=== PATIENT | female | born 1955 ===

== ENCOUNTER 2017-01-09 05:37 | Day surgery (SDC) | payer OTHER ==
[~2017-01-09] VITALS: Ht 162.6 cm; Wt 62.8 kg
[2017-01-09] VITALS (13 sets, daily range): BP systolic 118–128; BP diastolic 53–64; PULSE 62–82; RESP 10–17; O2SAT 97–100
[~2017-01-09 05:37] MED LIST: ASPI-973 PO; ATOR20TA PO; BIOT10003 PO; CARB1DRO18 OP; CHOL100045 PO; CINN500C14 PO; CRAN400T4 PO; GABA-502 PO; INSU100I13 SUBQ; LISI10TA PO; LORazepam 1 mg Tablet PO PRN; LOV40 SUBQ; Lactated Ringer's 1,000 ML IV SCH; Lidocaine-Prilo 2.5-2.5% 30 Gm Cream TOPICAL ONE; MAGN250T29 PO; METF500T4 PO; MILK500C PO; OMEG500C3 PO; OXYC5CAP4 PO; RNT300T PO; WARF3TAB7 PO; WARF4TAB6 PO
[2017-01-09] MEDS ORDERED: fentaNYL-PF 50 mCg/mL 2 mL Inj ONE (05:38)
[2017-01-09] MEDS ORDERED: Propofol 10,000 mCg/mL 20 mL Inj ONE (05:38)
[2017-01-09] MEDS ORDERED: CeFAZolin Inj 2 GM in IV Premix 1 EACH IV ONE (06:00)
[2017-01-09] MEDS ORDERED: Lactated Ringer's 1,000 ML IV ONE (06:05)
[2017-01-09 06:40] LABS: INR 0.94 ratio
[2017-01-09] MEDS ORDERED: EPHEDrine Sulfate 50 mg/mL Inj IVPUSH PRN (07:40)
[2017-01-09] MEDS ORDERED: Atropine 0.4 mg/mL Inj IVPUSH PRN (07:40)
[2017-01-09] MEDS ORDERED: Lactated Ringer's 1,000 ML IV SCH (07:40)
[2017-01-09] MEDS ORDERED: Ondansetron 2 mg/mL 2 mL Inj IVPUSH PRN (07:40)
[2017-01-09] MEDS ORDERED: Labetalol 5 mg/mL 4 mL Inj IV PRN (07:40)
[2017-01-09] MEDS ORDERED: MetoCLOpramide 5 mg/mL 2 mL Inj IVPUSH PRN (07:40)
[2017-01-09] MEDS ORDERED: Dexamethasone 4 mg/mL Inj IVPUSH PRN (07:40)
[2017-01-09] MEDS ORDERED: Phenylephrine 10,000 mCg/mL Inj IVPUSH PRN (07:40)
[2017-01-09] MEDS ORDERED: Lactated Ringer's 500 ML IV PRN (07:40)
[2017-01-09] MEDS ORDERED: fentaNYL-PF 50 mCg/mL 2 mL Inj IVPUSH PRN (07:40)
[2017-01-09] MEDS ORDERED: hydrALAZINE 20 mg/mL Inj IVPUSH PRN (07:40)
--- NOTE | 2017-01-09 07:40 | PCM.HPANE ---
Patient Data Date of Service: Jan 09, 2017 (Exam completed 7:00) Surgeon Admitting Provider: Attending Provider:Majo Cervantes MD Primary Care Physician:Sarahy Delvalle Other Provider:Dewey Orozco Anesthesia Reason for Visit Anac Cancer, Right Kidney Stone Ht/WT & BMI Height (Feet): 5 Height (Inches): 4.00 Weight (Kilograms): 62.8 Body Mass Index 23.00 Allergies Coded Allergies: lovastatin (Verified Allergy, Unknown, 09/09/16) morphine (Verified Allergy, Unknown, 09/09/16) acetaminophen (Verified Adverse Reaction, Severe, Severe Nausea, 09/09/16) hydrocodone (Verified Adverse Reaction, Severe, Severe Nausea, 09/09/16) Past Anesthesia History Anesthesia History: Positive for:: Anesthesia Reactions (breathing issues after Aug 2016 surgery), Denies:: Abnormal Airway, Difficult Intubation, Fam Anesthesia Reaction Diabetes History Hx Diabetes?: Yes (typeII insulin ) Type of Diabetes: Type II Glycemic Control: Insulin & Oral Medication Current Bedside Blood Glucose: 99 MRSA MRSA: No Medications Blood Thinner: Aspirin, Coumadin, Lovenox Hypertension Medication: Yes Home Meds Incl Beta Mario: No Active Scripts oxyCODONE 5 Mg Capsule5 Mg PO Q4H PRN For Pain #15 CAPSULE Ref 0 Prov:DickdreBebe cortez DO 09/11/16 Reported Medications Carboxymethyl/Gly/Poly80/Pf (Refresh Optive Advanced Drops)1 Each Droperette1 Each OP QID 09/09/16 Magnesium Oxide (Magnesium)250 Mg Qbysfq905 Mg PO HS 09/09/16 Insulin Glargine (Lantus U100 Solostar Insulin Pen)100 Unit/1 Ml Insuln.pen10 Unit SUBQ HS #1 PENINJ Ref 0 09/09/16 Insulin Glargine (Lantus U100 Solostar Insulin Pen)100 Unit/1 Ml Insuln.pen20 Unit SUBQ QAM #1 PENINJ Ref 0 09/09/16 Enoxaparin (Lovenox)40 Mg/0.4 Ml Eltefhy11 Mg SUBQ DAILY Ref 0 09/09/16 Gabapentin 300 Mg Lbvgnru416 Mg PO HS Ref 0 09/09/16 Cholecalciferol (Vitamin D3) (Vitamin D)1,000 Unit Capsule2,000 Unit PO DAILY # 1 BOTTLE Ref 0 09/09/16 Ranitidine (Zantac)300 Mg Dhzqse487 Mg PO DAILY Ref 0 09/06/16 Warfarin Sodium 4 Mg Tablet4 Mg PO DAILY 30 Days Ref 0 EVERY DAY EXCEPT Friday09/06/16 Warfarin Sodium 3 Mg Tablet3 Mg PO WEEKLY 30 Days Ref 0 Friday09/06/16 Lisinopril 10 Mg Bsabzu25 Mg PO DAILY 30 Days Ref 0 09/06/16 Metformin 500 Mg Tablet1,000 Mg PO BIDWM Ref 0 09/06/16 Platina-3 Fatty Acids (Fish Oil)500 Mg Bdjmohk681 Mg PO DAILY 09/06/16 Cranberry Fruit (Cranberry)400 Mg Evrplq094 Mg PO BID 09/06/16 Biotin 10,000 Mcg Nkwudnu51,000 Mcg PO DAILY 09/06/16 Aspirin 81 Mg Pxanrt76 Mg PO DAILY Ref 0 09/06/16 Milk Thistle 500 Mg Capsule1,000 Mg PO DAILY 04/25/16 Cinnamon Bark (Cinnamon)500 Mg Qhogpaa375 Mg PO DAILY 04/25/16 Atorvastatin (Lipitor)20 Mg Dqkijb80 Mg PO DAILY Ref 0 04/09/16 History History of ENT Problems?: No HEENT History: Positive for:: Cataracts (bilateral surgery) Denies:: Abnormal Airway Difficult Intubation Dysphagia Glaucoma Hearing Problem Sinus Problem TMJ Denture Type: Partial- Upper Hx of Heart Problems?: Yes Cardiovascular History: Positive for:: Hypertension Thrombophlebitis (hx DVT ) Denies:: Congestive Heart Failure Pacemaker Hx of Respiratory Problem?: Yes Respiratory History: Positive for:: Pneumonia (post surgery 08/2016) Denies:: Asthma COPD Emphysema Oxygen Administration Tuberculosis Use of C-PAP Machine Use of Inhalers / NEBS Hx Neurologic Problems?: No Neurological History: Denies:: Alzheimer's Disease CVA Dementia Dizziness Headaches Parkinson's Disease Seizures Hx of GI Problems?: Yes Gastrointestinal History: Positive for:: Gastroesphageal Reflux Heartburn Rectal Bleeding (anal cancer ) Denies:: Cirrhosis Gall Bladder Disease Hx of Problems?: Yes Genitourinary History: Positive for:: Kidney Stones (hx of right stone current problem) Denies:: Urinary Tract Infection Female Hx: Denies:: Currently Problems with Breasts? Skin History: Denies:: History Skin Disorders? Pressure Ulcers Hx Musculoskeletal Problems?: Yes Musculoskeletal History: Positive for:: Back Injury Degenerative Joint Fibromyalgia Osteoarthritis Denies:: Joint Replacement Musculoskeletal Trauma Hx of Psycho/Social Problems?: No Hx Surgeries?: Yes (APPY,EYE) Hx Any Other Health Problems?: Yes Other History: Positive for:: Cancer (rectal ) Hospitalization Denies:: Thyroid Disease History Blood Transfusions: Positive for:: Accept Blood Products? Blood Transfusions Denies:: Blood Transfuse Reaction Hx Diabetes: Yes (typeII insulin )Bedside Blood Glucose: 99 Hx Alcohol Use: NoHx Substance Use: No Smoking Status: Former Smoker Have You Smoked inLast 12 mo: No Stop/Bang S-Snoring: Do You Snore Loudly: No T-Tired: feel tired, fatigued: Yes O-Obsered: Observed not breath: No P-Blood Pressure: treated: Yes B- Body Mass Index > 35 kg/m2: No A- Age over 50: Yes N- Neck Large Circumference: No G- Gender Male: No DAMIEN Total Score: 3 DAMIEN Risk Assessment: Low Risk, <3 Yes Risk Assessment Category Category 1A: Patient has history of documented sleep apnea, and HAS NOT received any narcotic, sedative or anesthesia administration during this stay. Category 1B: Patient has history of documented sleep apnea, and HAS received any narcotic , sedative or anesthesia administration during this stay Category 2: Patient has SUSPECTED Obstructive Sleep Apnea, and HAS received any narcotic , sedative or anesthesia administration during this stay. Category 3: Patient has SUSPECTED Obstructive Sleep Apnea and HAS NOT received narcotic, sedative or anesthesia administration during this stay. Category 4: Outpatient in Procedural Areas with known sleep apnea or who screen positive for High Risk via the STOP/BANG questionnaire. Exam Exam Vital Signs Vital Signs Date Time Temp Pulse Resp B/P Pulse Ox O2 Delivery O2 Flow Rate FiO2 01/09/17 06:28 36.4 82 17 118/60 97 Room Air General Appearance: Alert, Oriented X3, Cooperative, No Acute Distress HEENT/AIRWAY: MP 2, Neck Movement Lungs: Clear to Auscultation, Normal Air Movement Heart: Exam Unremarkable, Regular Rate/Rhythm, No Murmurs/Rubs/Gallops Meds/Labs/Diagnostics Admission Meds Current Medications Lactated Ringer's (Lr) 1,000 ml @ ud STK-MED ONCE IV Last administered on t 06:05; Start 01/09/17 at 06:05; Stop 01/09/17 at 06:27; Status DC Bedside Blood Glucose: 99 Labs Test 01/09/17 06:15 Prothrombin Time 10.0sec (8.1-12.5) Prothromb Time International Ratio 0.94ratio Plan Impression Patient chart reviewed, patient interviewed and anesthestic plan with risks, benefits, and alternatives discussed, and informed consent obtained. NPO Status: 01/08@1400, water @2200 ASA Physical Status: ASA3 Severe Disease Anesthetic Plan: MAC, SAB Bene/Risks/Altern/Consents: Yes HP Complete Prior to Induction: Yes Peter Keene MD Jan 09, 2017 07:40
[2017-01-09] MEDS ORDERED: Bupivacaine-MPF 0.5% 30 mL Inj INFILTRATE ONE (08:18)
[2017-01-09] MEDS ORDERED: OXYC-474 PO (08:43)
--- NOTE | 2017-01-09 09:03 | DRSVH ---
PROCEDURE: X-RAY KUB ([id number]) INDICATIONS: RIGHT KIDNEY STONE TECHNIQUE: One view of the abdomen acquired. COMPARISON: [facility], CR, XR KUB, 12/13/2016, 8:32. FINDINGS: Surgical changes and devices: Lower quadrant surgical clips. Bowel: Bowel gas pattern is normal. Soft tissues: 2 calcification is seen projected over the mid pole of the right kidney largest measuri ng 1.6 cm and a smaller 0.7 cm. 2 stones also seen projecting over the midpole of the left kidney la rgest measuring 1.0 cm and the smaller 0.4 cm. Bones: No suspicious bony lesions. IMPRESSION: Bilateral renal calcifications similar to prior exam. Dictated by: Hever Dave RR Interpreted: Lukas Silva MD on 01/09/2017 at 9:01 Transcribed by: SUNDAY on 01/09/2017 at 9:02 Approved by: Lukas Silva M.D. on 01/10/2017 at 13:29
--- NOTE | 2017-01-09 09:56 | OP ---
[address] [address] OPERATIVE REPORT PATIENT: MASSIMO GUEVARA : 1955 MR#: [id number] ADMIT: 01/09/2017 JOB ID: [id number] DATE OF SURGERY: 01/09/2017 PREOPERATIVE DIAGNOSIS(ES): Right proximal ureteral stone. POSTOPERATIVE DIAGNOSIS(ES): Right proximal ureteral stone. PROCEDURE PERFORMED: 1. Cystoscopy and right ureteral stent placement. 2. Right extracorporeal shockwave lithotripsy. SURGEON: Majo Cervantes MD SLABBING MACHINE OPERATOR: None. FINDINGS: Right proximal ureteral stone that hazed quickly within the first 200 shocks with excellent fragmentation. A total of 2000 shocks were delivered to this stone. 2000 shocks was the maximum capability for this machine at a power of 8. ANESTHESIA: Spinal. ESTIMATED BLOOD LOSS: None. DRAIN: A 6 x 24 right double-J ureteral stent. SPECIMENS: None. COMPLICATIONS: None. CONDITION: Stable. INDICATION FOR PROCEDURE: The patient is a 61-year-old woman who has a history of undergoing attempted ureteroscopy though subsequently postoperatively sustained a bronchospasm. She now presents for shockwave lithotripsy under spinal. DESCRIPTION OF PROCEDURE: After informed consent was obtained, the patient was taken to the operating room. A time-out was performed identifying correct patient, surgical site, and procedure. Spinal anesthesia was induced. She had undergone an anal biopsy with Dr. Varela. Please, see his separately dictated note. Her genitals were prepped and draped in the usual sterile fashion. A 22-[place] rigid cystoscope was applied to the patient's urethra and advanced to the bladder. The bladder was drained. The right ureteral orifice was seen in orthotopic position. It was cannulated with a 5-[place] open-ended Pollack catheter. A Sensor tip wire was then navigated through it to the renal pelvis. The Pollack was subsequently removed and a 6 x 24 double-J ureteral stent was loaded over it and advanced to the renal pelvis as seen under fluoroscopy. The wire was then removed leaving a nice coil in the patient's bladder as seen under direct vision. The bladder was drained. The patient subsequently underwent shockwave lithotripsy as aforementioned in the findings above. She appeared to tolerate it well. She was then taken to the PACU in good and stable condition. [facility]
--- NOTE | 2017-01-09 10:17 | PCM.ANEP1 ---
Post Anesthesia Phase 1 PACU Phase 1 Assessment Date of Service: Jan 09, 2017 (Exam completed 7:00) Vital Signs Vital Signs Date Time Temp Pulse Resp B/P Pulse Ox O2 Delivery O2 Flow Rate FiO2 01/09/17 10:07 13 100 01/09/17 10:00 36.4 62 14 126/60 98 Room Air 01/09/17 09:50 62 14 128/59 97 Room Air 01/09/17 09:40 66 12 124/55 97 Room Air 01/09/17 09:35 68 12 119/53 97 Room Air 01/09/17 09:30 67 12 127/61 97 Room Air 01/09/17 09:29 15 100 01/09/17 09:25 74 15 119/57 100 Room Air 01/09/17 09:22 36.4 74 10 122/53 100 Simple Mask 8 01/09/17 06:28 36.4 82 17 118/60 97 Room Air Anesthetic Administered: SAB Level of Alertness: Awake, talking GARCIA's with Equal Strength: Yes Pain: No Nausea or Vomiting: No Oxygen Delivery: Room Air Lungs: Clear to Auscultation, Normal Air Movement Dermatome Level: L1,2 (Groin) Peter Keene MD Jan 09, 2017 10:17
--- NOTE | 2017-01-09 10:32 | PCM.ANEP2 ---
Post Anesthesia Evaluation ASA/CMS Post Anesthesia VS in Patient's Normal Range?: Yes Resp Stable; Airway Patent?: Yes CV Function & Hydration Stable: Yes Mental Status Recovered?: Yes Pain control Satisfactory?: Yes N/V Control Satisfactory?: Yes Peter Keene MD Jan 09, 2017 10:32
--- NOTE | 2017-01-10 16:29 | OP ---
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 POSTOPERATIVE DIAGNOSIS(ES): Scarring without obvious evidence of recurrent or residual squamous cell carcinoma. PROCEDURE PERFORMED: Anorectal examination under anesthesia with biopsies. SURGEON: Ciara Varela MD COMMUNICATIONS DEPARTMENT HEAD: None. COMPLICATIONS: None. INDICATIONS: The patient is a 61-year-old lady who developed a mild burning sensation near her anus in early 2015. Later in March 2016 she developed bleeding per rectum and was evaluated by Dr. Gabriela Almeida at [facility] who found a 6 cm nearly circumferential ulcerative fixed firm mass in the anal canal. Biopsies of this mass showed well-differentiated squamous cell carcinoma. She has been treated with chemoradiation finishing in May 2016. Dr. Moreno referred her to me for surveillance anoscopy with biopsies. After discussing the risks, benefits, and alternatives, she is here today after holding her warfarin, at the same time as treatment for her nephrolithiasis with Dr. Cervantes. PROCEDURE DETAILS: She underwent smooth induction of spinal anesthesia, and was placed in the lithotomy position. The perineum was prepped and draped in the usual sterile fashion. Surgical time-out was undertaken using safety checklist and all were in agreement. I first began by performing digital rectal exam and found scarring of the anal canal that I had appreciated previously. Because of the scarring I could not actually place the anal speculum to spread open the anal canal. I used a [place] retractor to expose the anal canal and noted that there was scarring most prominent at 9 o'clock and at 12 o'clock locations in the lithotomy position; that is, on the right side and anteriorly. Then, I took biopsies of the scar 2 cm deep to the anal verge in both these locations and I also took additional random biopsies at 6 o'clock and 3 o'clock within the anal canal. After ensuring adequate hemostasis, I infiltrated the site with bupivacaine and terminated the procedure. Please refer to Dr. Cervantes's dictation for her part of the procedure.
--- NOTE | 2017-01-13 14:45 | PATH ---
SURGICAL PATHOLOGY Attending Physician:Ciara Varela MD CASE STATUS: Signed Out PATIENT NAME: MASSIMO GUEVARA PID: [id number] : 1955 DATE COLLECTED:01/09/2017 19:59 SPECIMEN: 1: Anus, Biopsy 2: Anus, Biopsy 3: Anus, Biopsy 4: Anus, Biopsy CLINICAL HISTORY: ANAL CANCER 1). 9 O'CLOCK 2CM DEEP TO ANAL VERGE SCAR 2). RANDOM BIOPSY 6 O'CLOCK 1CM DEEP TO ANAL VERGE 3). RANDOM 1CM FROM ANAL VERGE 3 O'CLOCK 4). 12 O'CLOCK 2CM DEEP TO ANAL VERGE SCAR FINAL DIAGNOSIS: 1.BIOPSY AT 9 O' CLOCK, 2 CM DEEP TO THE ANAL VERGE, SCAR: SQUAMOUS MUCOSA AND UNDERLYING FIBROSIS WITH NO EVIDENCE FOR MALIGNANCY. 2.RANDOM BIOPSY, 6 O' CLOCK, 1 CM DEEP TO THE ANAL VERGE: FRAGMENTS OF SQUAMOUS EPITHELIUM NEGATIVE FOR SIGNIFICANT ATYPIA, WELL SMALL FRAGMENTS OF FIBROUS TISSUE NEGATIVE FOR MALIGNANCY. 3.RANDOM BIOPSY, 1 CM FROM THE ANAL VERGE AT 3 O' CLOCK: FRAGMENTS OF BENIGN SQUAMOUS EPITHELIUM, NEGATIVE FOR SIGNIFICANT ATYPIA. 4.BIOPSY, 12 O' CLOCK, 2 CM DEEP TO THE ANAL VERGE SCAR: FRAGMENTS OF SQUAMOUS EPITHELIUM WITH REACTIVE CHANGES AND UNDERLYING FIBROUS TISSUE, NEGATIVE FOR MALIGNANCY. ICD10 CODE Z85.048 GROSS DESCRIPTION: The specimen is received in four formalin filled containers labeled with the patient's name. 1). The specimen is sublabeled "9:00, 2 CM deep to anal verge scar" and consists of 3 portions of tissue which aggregate to 0.3 x 0.3 x 0.2 CM. The specimen is entirely submitted in cassette 1A. 2). The specimen is sublabeled "random 6:00, one CM deep to anal verge" and consists of a 0.3 x 0.1 x 0.1 CM White donovan-white portion of tissue. The specimen is entirely submitted in cassette 2A. 3). The specimen is sublabeled "random one CM from anal verge-3:00" and consists of a 0.2 x 0.2 x 0.2 CM portion of tissue which is entirely submitted in cassette 3A. 4). The specimen is sublabeled "12:00, 2 CM deep to anal verge scar" and consists of 2 portions of tissue which aggregate to 0.3 x 0.2 x 0.2 CM. The specimen is entirely submitted in cassette 4A. 01/09/2017 [facility] MICRO DESCRIPTION: Sections from part 1 are of a biopsy stated to be 2 cm deep to the anal verge, 9 o' clock. The fragments contain squamous epithelium and underlying fibrous tissue consistent with a scar. Within the fibrous tissue there are plump cells, and in order to rule out the possibility of residual carcinoma in this area immunohistochemistry is performed. These cells are negative for LATHA and positive for CD31, indicating that they are reactive endothelial cells with no evidence for malignancy. Sections from part 2 are random biopsy at 6 o' clock, 1 cm deep to the anal verge. This consists of squamous epithelium. Small fragments of fibrous tissue are also present. There is no evidence for malignancy. Sections from part 3 are of random biopsies 1 cm from the anal verge at 3 o' clock. These are fragments of squamous epithelium only. No malignancy is noted, nor is there significant atypia. Part 4 are biopsies from 12 o' clock, 2 cm deep to the anal verge. The tissue is similar to that described in part 1. There is squamous epithelium showing reactive changes, and there is underlying fibrous tissue within which there is chronic inflammation, fibrosis, and a few scattered plump cells. Immunohistochemistry reveals these plump cells to be negative for LATHA and positive for CD31, indicating that they are reactive endothelial cells with no evidence for malignancy. This test was developed and its performance characteristics determined by [facility]. It has not been cleared or approved by the [place]. S. Food and Drug Administration. The FDA has determined that such clearance or approval is not necessary. This test is used for clinical purposes. It should not be regarded as investigational or for research. ICD-9 CODES: CPT CODES: 1: 29101, 83936, 74235 2: 22894 3: 06873 4: 73694, 45165, 47356 Electronically Signed Out Nahid So MD [facility] [address], [place] [address] Technical component performed at [facility], [address], [place], [address]
[2017-03-18] MEDS ORDERED: GABA-502 PO (09:42)
[2017-03-18] MEDS ORDERED: CHOL200025 PO (09:42)
[2017-03-18] MEDS ORDERED: OXYC5TAB72 PO (09:42)
[2017-03-18] MEDS ORDERED: ASPI-973 PO (09:42)
[2017-03-18] MEDS ORDERED: BIOT10003 PO (09:42)
[2017-03-18] MEDS ORDERED: OMEG500C PO (09:42)
[2017-03-18] MEDS ORDERED: MILK500C PO (09:42)
[2017-03-18] MEDS ORDERED: MAGN250T37 PO (09:42)
[2017-03-18] MEDS ORDERED: VITA200T5 PO (09:42)
[2017-03-18] MEDS ORDERED: CRAN400C PO (09:42)
[2017-03-18] MEDS ORDERED: WARF3TAB7 PO (09:42)
[2017-03-18] MEDS ORDERED: LISI10TA PO (09:42)
[2017-03-18] MEDS ORDERED: WARF4TAB6 PO (09:42)
[2017-03-18] MEDS ORDERED: CARB10DR2 OP (09:42)
[2017-03-18] MEDS ORDERED: RNT300T PO (09:42)
[2017-03-18] MEDS ORDERED: METF1000 PO (09:42)
[2017-03-18] MEDS ORDERED: [UNRECOGNIZED DRUG - OTHER] ×2 (09:42)
[2017-03-18] MEDS ORDERED: ATOR20TA PO (09:42)
[2017-03-18] MEDS ORDERED: CINN500C14 PO (09:42)
== END 2017-01-09 23:59 | disposition home or self-care (01) ==
LOC: SAS 05:37
PROVIDERS: ATTEND Urology
DX: N20.1 Calculus of ureter (principal); Z85.048 Personal history of other malignant neoplasm of rectum, rectosigmoid junction, and anus; I10 Essential (primary) hypertension; E11.9 Type 2 diabetes mellitus without complications; E78.5 Hyperlipidemia, unspecified; M06.9 Rheumatoid arthritis, unspecified; K21.9 Gastro-esophageal reflux disease without esophagitis; M79.7 Fibromyalgia; Z86.718 Personal history of other venous thrombosis and embolism; Z79.4 Long term (current) use of insulin; Z79.82 Long term (current) use of aspirin; Z87.891 Personal history of nicotine dependence; Z79.84 Long term (current) use of oral hypoglycemic drugs; Z79.01 Long term (current) use of anticoagulants
CPT/HCPCS: 36415; 45990; 50590; 52332; 74000; 85610; 85730; C2617; J0690; J2250; J3010; J7120

== ENCOUNTER 2017-03-20 08:44 | Day surgery (SDC) | payer OTHER ==
--- NOTE | 2017-03-18 11:35 | PCM.ANEPRE ---
Anesthesia Pre-Op Review Reason for Review: prior anes complication Anesthesia Recommendations: Proceed with Procedure Additional Comments Patient had to be reintubated after a cystoscopy with multiple day stay in ICU on ventilator. Following ESWL done under spinal. Patient reports stopping Coumadin 03/13. Proceed with final decision by anesthesiologist DOS. Chart Reviewed by: Kaylee Cuenca DO Mar 18, 2017 11:35
[2017-03-20] VITALS (8 sets, daily range): BP systolic 99–122; BP diastolic 52–63; PULSE 66–88; RESP 10–17; O2SAT 97–100
[~2017-03-20] VITALS: Ht 162.6 cm; Wt 63.4 kg
[~2017-03-20 08:44] MED LIST changes: +CARB10DR2 OP; -CARB1DRO18 OP; -CHOL100045 PO; +CHOL200025 PO; +CRAN400C PO; -CRAN400T4 PO; +CeFAZolin Inj 2 GM in IV Premix 1 EACH IV ONE; -INSU100I13 SUBQ; -LORazepam 1 mg Tablet PO PRN; -LOV40 SUBQ; -Lactated Ringer's 1,000 ML IV SCH; -Lidocaine-Prilo 2.5-2.5% 30 Gm Cream TOPICAL ONE; -MAGN250T29 PO; +MAGN250T37 PO; +METF1000 PO; -METF500T4 PO; +OMEG500C PO; -OMEG500C3 PO; -OXYC5CAP4 PO; +OXYC5TAB72 PO; +VITA200T5 PO; +[UNRECOGNIZED DRUG - OTHER]
[2017-03-20] MEDS ORDERED: fentaNYL-PF 50 mCg/mL 2 mL Inj ONE (08:45)
[2017-03-20] MEDS ORDERED: Dexamethasone 4 mg/mL Inj ONE (08:45)
[2017-03-20] MEDS ORDERED: Phenylephrine/NS 100 mCg/mL 10 mL Syringe IVPUSH ONE (08:45)
[2017-03-20] MEDS ORDERED: Propofol 10,000 mCg/mL 20 mL Inj ONE (08:45)
[2017-03-20] MEDS ORDERED: Ondansetron 2 mg/mL 2 mL Inj ONE (08:45)
[2017-03-20] MEDS: Lactated Ringer's 1,000 ML IV SCH ×2 (09:31→10:18)
--- NOTE | 2017-03-20 10:14 | PCM.HPANE ---
Patient Data Surgeon Admitting Provider: Attending Provider:Majo Cervantes MD Primary Care Physician:Sarahy Delvalle Other Provider:Dewey Orozco Anesthesia Reason for Visit Left Kidney Stone Ht/WT & BMI Height (Feet): 5 Height (Inches): 4 Weight (Kilograms): 63.95 Body Mass Index 24.00 Allergies Coded Allergies: lovastatin (Verified Allergy, Unknown, 09/09/16) morphine (Verified Allergy, Unknown, 09/09/16) acetaminophen (Verified Adverse Reaction, Severe, Severe Nausea, 09/09/16) hydrocodone (Verified Adverse Reaction, Severe, Severe Nausea, 09/09/16) Past Anesthesia History Anesthesia History: Positive for:: Anesthesia Reactions (breathing issues after Aug 2016 surgery), Denies:: Abnormal Airway, Difficult Intubation, Fam Anesthesia Reaction Diabetes History Hx Diabetes?: Yes (last found Hgb A1C- 6.3 07/29/16) Type of Diabetes: Type II Glycemic Control: Insulin & Oral Medication MRSA MRSA: No Medications Blood Thinner: Aspirin, Coumadin, Lovenox Hypertension Medication: Yes Home Meds Incl Beta Mario: No Reported Medications Cholecalciferol (Vitamin D3) (Vitamin D3)2,000 Unit Tablet2,000 Unit PO DAILY 03/18/17 Ranitidine (Zantac)300 Mg Qylpgs701 Mg PO DAILY Ref 0 03/18/17 Warfarin Sodium 4 Mg Tablet4 Mg PO 5xweek 30 Days Ref 0 03/18/17 Warfarin Sodium 3 Mg Tablet3 Mg PO wed/fri 30 Days Ref 0 03/18/17 Carboxymethylcellulos/Glycerin (Refresh Optive Gel Eye Drops)1 %-0.9 % Drops.gel10 Ml OP DAILY 03/18/17 Milk Thistle 500 Mg Capsule1,000 Mg PO DAILY 03/18/17 Metformin (Glucophage)1,000 Mg Tablet1,000 Mg PO BID Ref 0 03/18/17 Magnesium Oxide 250 Mg Culbko823 Mg PO DAILY 03/18/17 Lisinopril 10 Mg Cwlyyw90 Mg PO DAILY 30 Days Ref 0 03/18/17 Gabapentin 300 Mg Ppwzlfq644 Mg PO DAILY Ref 0 03/18/17 [place]-3 Fatty Acids (Fish Oil)500 Mg Capsule.dr500 Mg PO DAILY 03/18/17 Cranberry 400 Mg Lhzttgw441 Mg PO BID 03/18/17 Cinnamon Bark (Cinnamon)500 Mg Eodhaus802 Mg PO DAILY 03/18/17 Biotin 10,000 Mcg Pkhiudh89,000 Mcg PO DAILY 03/18/17 [busaglar] No Conflict Check20 Units QPM 03/18/17 [busaglar] No Conflict Check20 Units QAM 03/18/17 Atorvastatin (Lipitor)20 Mg Drwsre30 Mg PO DAILY Ref 0 03/18/17 Aspirin 81 Mg Duzlpu61 Mg PO DAILY Ref 0 03/18/17 Discontinued Reported Medications oxyCODONE 5 Mg Tablet5 Mg PO Q4H PRN For Pain Ref 0 03/18/17 Vitamin E Acid Succinate (Vitamin E)200 Unit Vjnhrj678 Unit PO DAILY 03/18/17 Carboxymethyl/Gly/Poly80/Pf (Refresh Optive Advanced Drops)1 Each Droperette1 Each OP QID 09/09/16 Magnesium Oxide (Magnesium)250 Mg Wllgfs394 Mg PO HS 09/09/16 Insulin Glargine (Lantus U100 Solostar Insulin Pen)100 Unit/1 Ml Insuln.pen10 Unit SUBQ HS #1 PENINJ Ref 0 09/09/16 Insulin Glargine (Lantus U100 Solostar Insulin Pen)100 Unit/1 Ml Insuln.pen20 Unit SUBQ QAM #1 PENINJ Ref 0 09/09/16 Enoxaparin (Lovenox)40 Mg/0.4 Ml Omlruok88 Mg SUBQ DAILY Ref 0 09/09/16 Gabapentin 300 Mg Wwvylzl520 Mg PO HS Ref 0 09/09/16 Cholecalciferol (Vitamin D3) (Vitamin D)1,000 Unit Capsule2,000 Unit PO DAILY # 1 BOTTLE Ref 0 09/09/16 Ranitidine (Zantac)300 Mg Fuzcnc225 Mg PO DAILY Ref 0 09/06/16 Warfarin Sodium 4 Mg Tablet4 Mg PO DAILY 30 Days Ref 0 EVERY DAY EXCEPT Friday09/06/16 Warfarin Sodium 3 Mg Tablet3 Mg PO WEEKLY 30 Days Ref 0 Friday09/06/16 Lisinopril 10 Mg Qdicgy22 Mg PO DAILY 30 Days Ref 0 09/06/16 Metformin 500 Mg Tablet1,000 Mg PO BIDWM Ref 0 09/06/16 [place]-3 Fatty Acids (Fish Oil)500 Mg Duxdoil737 Mg PO DAILY 09/06/16 Cranberry Fruit (Cranberry)400 Mg Gqbbcs806 Mg PO BID 09/06/16 Biotin 10,000 Mcg Wmhfubc60,000 Mcg PO DAILY 09/06/16 Aspirin 81 Mg Etbacd87 Mg PO DAILY Ref 0 09/06/16 Milk Thistle 500 Mg Capsule1,000 Mg PO DAILY 04/25/16 Cinnamon Bark (Cinnamon)500 Mg Lrelskr918 Mg PO DAILY 04/25/16 Atorvastatin (Lipitor)20 Mg Ykhpyj52 Mg PO DAILY Ref 0 04/09/16 Discontinued Scripts Oxycodone (Roxicodone)5 Mg Tablet5 Mg PO Q4H PRN For Pain #30 TABLET Ref 0 Prov:Ciara Varela MD 01/09/17 oxyCODONE 5 Mg Capsule5 Mg PO Q4H PRN For Pain #15 CAPSULE Ref 0 Prov:Bebe Rueda DO 09/11/16 History History of ENT Problems?: No HEENT History: Positive for:: Cataracts (bilateral surgery) Denies:: Abnormal Airway Difficult Intubation Dysphagia Hearing Problem Sinus Problem TMJ Denture Type: Partial- Upper Teeth Condition: Within Normal Limits Hx of Heart Problems?: Yes Cardiovascular History: Positive for:: Hypertension Thrombophlebitis (hx DVT - 1996, 1997 ) Denies:: Congestive Heart Failure Pacemaker Hx of Respiratory Problem?: Yes Respiratory History: Positive for:: Pneumonia (post surgery 08/2016) Denies:: Asthma COPD Emphysema Oxygen Administration Tuberculosis Use of C-PAP Machine Use of Inhalers / NEBS Hx Neurologic Problems?: No Neurological History: Denies:: Alzheimer's Disease CVA Dementia Dizziness Headaches Multiple Sclerosis Parkinson's Disease Seizures Hx of GI Problems?: Yes Gastrointestinal History: Positive for:: Gastroesphageal Reflux Heartburn Rectal Bleeding (anal cancer hx) Denies:: Cirrhosis Gall Bladder Disease Hepatitis Hiatal Hernia Liver Disease Hx of Problems?: Yes Genitourinary History: Positive for:: Kidney Stones (hx of left stone current problem) Denies:: Urinary Tract Infection Female Hx: Denies:: Currently Problems with Breasts? Skin History: Denies:: History Skin Disorders? Pressure Ulcers Hx Musculoskeletal Problems?: Yes Musculoskeletal History: Positive for:: Back Injury Degenerative Joint Fibromyalgia Osteoarthritis Denies:: Joint Replacement Musculoskeletal Trauma Myasthenia Gravis Systemic Lupus Hx of Psycho/Social Problems?: No Psycho Social History: Denies:: Anxiety Hx Depression Hx Surgeries?: Yes (APPY,EYE, kidney stones ) Hx Any Other Health Problems?: Yes Other History: Positive for:: Cancer (rectal ) Hospitalization Denies:: Thyroid Disease History Blood Transfusions: Positive for:: Accept Blood Products? Blood Transfusions Denies:: Blood Transfuse Reaction Hx Diabetes: Yes (last found Hgb A1C- 6.3 07/29/16) Hx Alcohol Use: NoHx Substance Use: No Smoking Status: Former Smoker Have You Smoked inLast 12 mo: No Stop/Bang S-Snoring: Do You Snore Loudly: No T-Tired: feel tired, fatigued: No O-Obsered: Observed not breath: No P-Blood Pressure: treated: Yes B- Body Mass Index > 35 kg/m2: No A- Age over 50: Yes N- Neck Large Circumference: No G- Gender Male: No DAMIEN Total Score: 2 Risk Assessment Category Category 1A: Patient has history of documented sleep apnea, and HAS NOT received any narcotic, sedative or anesthesia administration during this stay. Category 1B: Patient has history of documented sleep apnea, and HAS received any narcotic , sedative or anesthesia administration during this stay Category 2: Patient has SUSPECTED Obstructive Sleep Apnea, and HAS received any narcotic , sedative or anesthesia administration during this stay. Category 3: Patient has SUSPECTED Obstructive Sleep Apnea and HAS NOT received narcotic, sedative or anesthesia administration during this stay. Category 4: Outpatient in Procedural Areas with known sleep apnea or who screen positive for High Risk via the STOP/BANG questionnaire. Exam Exam General Appearance: Alert, Oriented X3, Cooperative, No Acute Distress HEENT/AIRWAY: MP 2 Lungs: Clear to Auscultation, Normal Air Movement Heart: Exam Unremarkable, Regular Rate/Rhythm, No Murmurs/Rubs/Gallops Meds/Labs/Diagnostics Admission Meds Current Medications Lactated Ringer's (Lr) 1,000 ml @ 120 mls/hr Q8H20M IV Last administered on t 09:31; Start 03/20/17 at 05:00; Stop 03/20/17 at 13:19 Plan Impression Patient chart reviewed, patient interviewed and anesthestic plan with risks, benefits, and alternatives discussed, and informed consent obtained. ASA Physical Status: ASA3 Severe Disease Anesthetic Plan: GA Bene/Risks/Altern/Consents: Yes HP Complete Prior to Induction: Yes Other discussed with patient at length GA vs. spinal given history of postextubation airway obstruction and flash pulmonary edema requiring reintubation. Reassured patient that this was a rare complication and does not necessarily mean she cannot have a safe GA with an LMA as she does not have any pulmonary medical comorbidities or history of DAMIEN. patient agrees and consents to proceed with GA and LMA. We will be extra vigilant for post op airway obstruction. Nakul Ng MD Mar 20, 2017 10:14
[2017-03-20 10:15] LABS: INR 0.94 ratio
[2017-03-20] MEDS ORDERED: HYDROcodone-APAP 5-325 mg Tablet PO PRN (10:40)
[2017-03-20] MEDS ORDERED: Lactated Ringer's 1,000 ML IV SCH (10:48)
[2017-03-20] MEDS ORDERED: Lactated Ringer's 500 ML IV PRN (10:48)
[2017-03-20] MEDS ORDERED: Phenylephrine 10,000 mCg/mL Inj IVPUSH PRN (10:50)
[2017-03-20] MEDS ORDERED: Ondansetron 2 mg/mL 2 mL Inj IVPUSH PRN (10:50)
[2017-03-20] MEDS ORDERED: MetoCLOpramide 5 mg/mL 2 mL Inj IVPUSH PRN (10:50)
[2017-03-20] MEDS ORDERED: Labetalol 5 mg/mL 4 mL Inj IV PRN (10:50)
[2017-03-20] MEDS ORDERED: fentaNYL-PF 50 mCg/mL 2 mL Inj IVPUSH PRN (10:50)
[2017-03-20] MEDS ORDERED: Atropine 0.4 mg/mL Inj IVPUSH PRN (10:50)
[2017-03-20] MEDS ORDERED: EPHEDrine Sulfate 50 mg/mL Inj IVPUSH PRN (10:50)
--- NOTE | 2017-03-20 11:29 | DRSVH ---
CORRECTED ACCESSION/PLACER NUMBER ON 04/10/17 PROCEDURE: X-RAY KUB ([id number]) INDICATIONS: LEFT KIDNEY STONE TECHNIQUE: One view of the abdomen acquired. COMPARISON: [facility], , XR KUB, 01/24/2017, 11:45. FINDINGS: Surgical changes and devices: None. Surgical clips projecting in the right lower quadrant as before Bowel: Bowel gas pattern is normal. Soft tissues: Unchanged appearance and size of left renal calculus measuring 1.1 cm checking in the i nferior pole the left kidney. There are adjacent smaller 1-2 mm calcifications as before. Right ureteral stent has been removed. Bones: No suspicious bony lesions. IMPRESSION: Unchanged size and position of left nephrolithiasis as above. Dictated by: David Bailey M.D. on 03/20/2017 at 11:26 Approved by: David Bailey M.D. on 03/20/2017 at 11:28
--- NOTE | 2017-03-20 11:30 | PCM.ANEP1 ---
Post Anesthesia Phase 1 PACU Phase 1 Assessment Vital Signs Vital Signs Date Time Temp Pulse Resp B/P Pulse Ox O2 Delivery O2 Flow Rate FiO2 03/20/17 11:28 72 15 115/61 99 03/20/17 11:15 70 17 119/62 100 03/20/17 11:10 74 17 99/56 100 Room Air 03/20/17 11:05 78 14 112/55 97 Room Air 03/20/17 11:02 36.5 77 10 122/63 98 Room Air 03/20/17 09:50 35.7 88 16 113/52 99 Room Air Anesthetic Administered: GA Level of Alertness: Awake, talking GARCIA's with Equal Strength: Yes Pain: No Nausea or Vomiting: No Cardiovascular Function and Hy: Yes Oxygen Delivery: Room Air Lungs: Clear to Auscultation, Normal Air Movement Dermatome Level: Full Sensation Complications: No Follow up Care: No Patient Instructions Provided: Yes Nakul Ng MD Mar 20, 2017 11:30
--- NOTE | 2017-03-20 15:52 | OP ---
[address] [address] OPERATIVE REPORT PATIENT: MASSIMO GUEVARA : 1955 MR#: [id number] ADMIT: 03/20/2017 JOB ID: [id number] DATE OF SURGERY: 03/20/2017 PREOPERATIVE DIAGNOSIS(ES): Left kidney stone. POSTOPERATIVE DIAGNOSIS(ES): Left kidney stone. PROCEDURE PERFORMED: Left extracorporeal shockwave lithotripsy. SURGEON: Majo Cervantes MD. SUPERVISOR COIL WINDING: None. FINDINGS: Left lower pole kidney stone. ANESTHESIA: General. ESTIMATED BLOOD LOSS: None. DRAINS: None. SPECIMENS: None. COMPLICATIONS: None. CONDITION: Stable. INDICATION FOR PROCEDURE: The patient is a 61-year-old woman with a left lower pole kidney stone. She now presents for shockwave lithotripsy. DESCRIPTION OF PROCEDURE: After informed consent was obtained, the patient was taken to the operating room. A time-out was performed, identifying correct patient, surgical site and procedure. General anesthesia was smoothly induced. She was placed in the supine position and positioned over the lithotripter device. All pressure points were identified, appropriately padded. The stone was easily localized in the cross hairs of the fluoroscopic lithotripter device. The stone was submitted to a total of 2500 shocks with very good hazing of the stone. The patient was then reversed from general anesthesia and taken to the PACU in good and stable condition.
== END 2017-03-20 23:59 | disposition home or self-care (01) ==
LOC: SAS 08:44
PROVIDERS: ATTEND Urology
DX: N20.0 Calculus of kidney (principal); E11.9 Type 2 diabetes mellitus without complications; I10 Essential (primary) hypertension; K21.9 Gastro-esophageal reflux disease without esophagitis; E78.5 Hyperlipidemia, unspecified; I82.409 Acute embolism and thrombosis of unspecified deep veins of unspecified lower extremity; Z79.01 Long term (current) use of anticoagulants; Z79.82 Long term (current) use of aspirin; Z79.84 Long term (current) use of oral hypoglycemic drugs
CPT/HCPCS: 36415; 50590; 74000; 85610; J0690; J1100; J1885; J2370; J2405; J3010; J7120